=== PATIENT | male | born 1960 | race Caucasian/White ===

== ENCOUNTER 2017-11-17 11:06 | Emergency (ER) | payer OTHER ==
[2017-11-17] MEDS: KETOROLAC 30 MG INJ IV (12:08)
[2017-11-17 12:11] LABS: ADD MAN DIFF? NO
[2017-11-17 12:13] LABS: BASOPHILS % 0.7 % (0.0-2.0); EOSINOPHILS # 0.1 10^3/ul (0.0-0.5); EOSINOPHILS % 3.1 % (0.0-7.0); HEMATOCRIT 41.8 % (42.0-52.0); HEMOGLOBIN 14.5 g/dl (14.0-18.0); LYMPHOCYTES # 1.4 10^3/ul (0.8-2.9); LYMPHOCYTES % 33.5 % (15.0-51.0); MEAN CORPUSCULAR HEMOGLOBIN 32.8 pg (29.0-33.0); MEAN CORPUSCULAR HGB CONC 34.7 g/dl (32.0-37.0); MEAN CORPUSCULAR VOLUME 94.6 fl (82.0-101.0); MEAN PLATELET VOLUME 11.1 fl (7.4-10.4); MONOCYTE # 0.4 10^3/ul (0.3-0.9); MONOCYTES % 9.4 % (0.0-11.0); NEUTROPHIL # 2.3 10^3/ul (1.6-7.5); NEUTROPHILS % 53.1 % (39.0-77.0); PLATELET COUNT 133 10^3/UL (140-415); POSITIVE DIFF @See below; RED BLOOD COUNT 4.42 10^6/ul (4.70-6.10); RED CELL DISTRIBUTION WIDTH 12.7 % (11.5-14.5)
[2017-11-17 12:13] LABS: WHITE BLOOD COUNT 4.2 10^3/ul (4.8-10.8)
[2017-11-17 12:15] LABS: URINE PH (Dip) POC 5.5 (5.0-8.5)
[2017-11-17 12:15] LABS: URINE BLOOD (Dip) POC Trace-lysed (NEGATIVE); URINE GLUCOSE (Dip) POC Negative (NEGATIVE); URINE KETONES (Dip) POC Negative (NEGATIVE); URINE LEUKOCYTE EST (Dip) POC Negative (NEGATIVE); URINE NITRITE (Dip) POC Negative (NEGATIVE); URINE TOTAL PROTEIN POC Negative (NEGATIVE)
[2017-11-17 12:37] LABS: ALANINE AMINOTRANSFERASE 25 IU/L (13-69); ALBUMIN/GLOBULIN RATIO 1.17; ALKALINE PHOSPHATASE 99 IU/L (42-121); ANION GAP 12 (8-16); ASPARTATE AMINO TRANSFERASE 21 IU/L (15-46); BILIRUBIN,INDIRECT 0.5 mg/dl (0-1.1); BILIRUBIN,TOTAL 0.5 mg/dl (0.2-1.3); BLOOD UREA NITROGEN 13 mg/dl (7-20); CALCIUM 9.1 mg/dl (8.4-10.2); CARBON DIOXIDE 26 mmol/L (21-31); CHLORIDE 109 mmol/L (97-110); CREATININE 0.71 mg/dl (0.61-1.24); GLUCOSE 96 mg/dl (70-220); LIPASE 82 U/L (23-300); POTASSIUM 3.8 mmol/L (3.5-5.1); SODIUM 143 mmol/L (135-144); TOTAL PROTEIN 7.4 g/dl (6.1-8.1)
== END 2017-11-17 13:52 | disposition home or self-care (01) ==
LOC: E/R 11:06
DX: K59.00 Constipation, unspecified (principal); D72.819 Decreased white blood cell count, unspecified; D69.6 Thrombocytopenia, unspecified; I10 Essential (primary) hypertension
CPT/HCPCS: 36415; 74176; 80053; 81003; 83690; 85025; 96374; 99285-25

== ENCOUNTER 2018-05-21 07:06 | Day surgery (SDC) | payer OTHER ==
[2018-05-21] MEDS ORDERED: LIDOCAINE 100 MG SYRINGE (08:59)
[2018-05-21] MEDS ORDERED: FENTAnyl 50 MCG/ML VIAL (08:59)
[2018-05-21] MEDS ORDERED: PROPOFOL 60 ML (08:59)
== END 2018-05-21 10:40 | disposition home or self-care (01) ==
LOC: GIL 07:06
DX: Z12.11 Encounter for screening for malignant neoplasm of colon (principal); K64.8 Other hemorrhoids; K29.50 Unspecified chronic gastritis without bleeding; B96.89 Other specified bacterial agents as the cause of diseases classified elsewhere; K21.9 Gastro-esophageal reflux disease without esophagitis; K44.9 Diaphragmatic hernia without obstruction or gangrene; I10 Essential (primary) hypertension; E78.5 Hyperlipidemia, unspecified; Z88.0 Allergy status to penicillin
CPT/HCPCS: 43239; 88305; 88312

== ENCOUNTER 2018-07-17 23:16 | Observation (INO) | payer OTHER ==
[2018-07-18 00:36] LABS: WHITE BLOOD COUNT 5.5 10^3/ul (4.8-10.8)
[2018-07-18 00:36] LABS: ADD MAN DIFF? NO; BASOPHILS % 0.5 % (0.0-2.0); EOSINOPHILS # 0.2 10^3/ul (0.0-0.5); EOSINOPHILS % 3.8 % (0.0-7.0); HEMATOCRIT 44.8 % (42.0-52.0); HEMOGLOBIN 15.5 g/dl (14.0-18.0); LYMPHOCYTES % 37.1 % (15.0-51.0); MEAN CORPUSCULAR HEMOGLOBIN 32.2 pg (29.0-33.0); MEAN CORPUSCULAR HGB CONC 34.6 g/dl (32.0-37.0); MEAN CORPUSCULAR VOLUME 93.1 fl (82.0-101.0); MEAN PLATELET VOLUME 11.1 fl (7.4-10.4); MONOCYTE # 0.6 10^3/ul (0.3-0.9); MONOCYTES % 10.2 % (0.0-11.0); NEUTROPHIL # 2.7 10^3/ul (1.6-7.5); NEUTROPHILS % 48.2 % (39.0-77.0); PLATELET COUNT 147 10^3/UL (140-415); RED BLOOD COUNT 4.81 10^6/ul (4.70-6.10); RED CELL DISTRIBUTION WIDTH 12.3 % (11.5-14.5)
[2018-07-18 01:00] LABS: ANION GAP 13 (5-13); BLOOD UREA NITROGEN 15 mg/dl (7-20); CALCIUM 9.4 mg/dl (8.4-10.2); CARBON DIOXIDE 23 mmol/L (21-31); CHLORIDE 101 mmol/L (97-110); CREATININE 0.65 mg/dl (0.61-1.24); Estimated GFR > 60 mL/min (>60); GLUCOSE 105 mg/dl (70-220); POTASSIUM 4.2 mmol/L (3.5-5.1); SODIUM 137 mmol/L (135-144)
[2018-07-18] MEDS: hydrALAzine 20 MG INJ IV (01:06)
[2018-07-18 01:12] LABS: TROPONIN-I 0.031 ng/ml (0.000-0.120)
[2018-07-18] MEDS ORDERED: ACETAMINOPHEN 325 MG TAB PO ×3 (02:30→09:00)
[2018-07-18] MEDS ORDERED: ONDANSETRON 4 MG INJ IV ×3 (02:30→09:00)
[2018-07-18] MEDS ORDERED: NITROGLYCERIN (SL) 0.4 MG TAB SL ×2 (05:00→09:00)
[2018-07-18] MEDS ORDERED: NACL 0.9% 3 ML SYG IV ×2 (05:00→09:00)
[2018-07-18] MEDS ORDERED: HYDROCODONE/APAP (5/325) TAB PO ×2 (05:00→09:00)
[2018-07-18] MEDS ORDERED: morphine 2 MG INJ IV ×2 (05:00→09:00)
[2018-07-18 06:12] LABS: ADD MAN DIFF? NO
[2018-07-18 06:23] LABS: BASOPHILS % 0.9 % (0.0-2.0); EOSINOPHILS # 0.2 10^3/ul (0.0-0.5); EOSINOPHILS % 4.8 % (0.0-7.0); HEMATOCRIT 44.1 % (42.0-52.0); LYMPHOCYTES # 1.6 10^3/ul (0.8-2.9); LYMPHOCYTES % 36.7 % (15.0-51.0); MEAN CORPUSCULAR HEMOGLOBIN 31.9 pg (29.0-33.0); MEAN CORPUSCULAR VOLUME 93.8 fl (82.0-101.0); MEAN PLATELET VOLUME 11.7 fl (7.4-10.4); MONOCYTE # 0.4 10^3/ul (0.3-0.9); MONOCYTES % 9.6 % (0.0-11.0); NEUTROPHIL # 2.1 10^3/ul (1.6-7.5); NEUTROPHILS % 47.5 % (39.0-77.0); PLATELET COUNT 127 10^3/UL (140-415); POSITIVE DIFF @See below; RED CELL DISTRIBUTION WIDTH 12.2 % (11.5-14.5)
[2018-07-18 06:23] LABS: WHITE BLOOD COUNT 4.4 10^3/ul (4.8-10.8)
[2018-07-18 07:01] LABS: TROPONIN-I < 0.012 ng/ml (0.000-0.120)
[2018-07-18 07:10] LABS: ALANINE AMINOTRANSFERASE 25 IU/L (13-69); ALBUMIN 4.1 g/dl (3.3-4.9); ALBUMIN/GLOBULIN RATIO 1.17; ALKALINE PHOSPHATASE 105 IU/L (42-121); ANION GAP 12 (5-13); ASPARTATE AMINO TRANSFERASE 25 IU/L (15-46); BILIRUBIN,INDIRECT 0.5 mg/dl (0-1.1); BILIRUBIN,TOTAL 0.5 mg/dl (0.2-1.3); BLOOD UREA NITROGEN 13 mg/dl (7-20); CALCIUM 9.3 mg/dl (8.4-10.2); CARBON DIOXIDE 24 mmol/L (21-31); CHLORIDE 102 mmol/L (97-110); CHOL/HDL RATIO 8.3 RATIO; CHOLESTEROL 242 mg/dl (100-200); CREATININE 0.62 mg/dl (0.61-1.24); Estimated GFR > 60 mL/min (>60); GLUCOSE 90 mg/dl (70-220); HDL CHOLESTEROL 29 mg/dl (30-78); MAGNESIUM 1.9 mg/dl (1.7-2.5); POTASSIUM 4.4 mmol/L (3.5-5.1); SODIUM 138 mmol/L (135-144); TOTAL PROTEIN 7.6 g/dl (6.1-8.1)
[2018-07-18] MEDS: HEPARIN 5,000 UNIT/1 ML VIAL SC (07:25)
[2018-07-18] MEDS: SOD CHLORIDE 0.45% 1,000 ML IV (08:52)
[2018-07-18 08:54] LABS: LDL CHOLESTEROL,CALCULATED 50 mg/dl; TRIGLYCERIDES 815 mg/dl (0-149)
[2018-07-18] MEDS ORDERED: DOCUSATE SODIUM 100 MG CAP PO (09:00)
[2018-07-18] MEDS: ASPIRIN (EC) 325 MG TAB PO ×2 (09:00→13:55)
[2018-07-18] MEDS ORDERED: MAGNESIUM HYDROXIDE 30ML CUP PO (09:00)
[2018-07-18] MEDS ORDERED: HEPARIN 5,000 UNIT/1 ML VIAL SC (09:00)
[2018-07-18] MEDS ORDERED: LORAZEPAM 2 MG INJ IV (09:00)
[2018-07-18] MEDS ORDERED: ALBUTEROL/IPRATROPIUM (NEB) 3 ML AMP HHN (09:00)
[2018-07-18] MEDS ORDERED: hydrALAzine 20 MG INJ IV (09:00)
[2018-07-18 13:55] LABS: CREATINE KINASE 89 IU/L (23-200)
[2018-07-18] MEDS: LISINOPRIL 10 MG TAB PO (13:55)
[2018-07-18 14:09] LABS: CK INDEX 1.1; CK-MB 0.96 ng/ml (0.0-2.4); TROPONIN-I < 0.012 ng/ml (0.000-0.120)
[2018-07-18] MEDS ORDERED: ATORVASTATIN 10 MG TAB PO (21:00)
[2018-07-18] MEDS ORDERED: NON-FORMULARY/PATIENT OWN MED (Simvastatin* (Zocor*) 20 MG) PO (21:00)
== END 2018-07-18 22:30 | disposition left against medical advice (07) ==
LOC: TEL 07-18 20:02 → E/R 23:16 → TEL 07-18 02:18
DX: R07.9 Chest pain, unspecified (principal); I10 Essential (primary) hypertension; E78.5 Hyperlipidemia, unspecified; E78.00 Pure hypercholesterolemia, unspecified
CPT/HCPCS: 36415; 71045; 80048; 80053; 80061; 82550; 82553; 83735; 84443; 84484; 85025; 93005; 96374; 99285-25; G0378

== ENCOUNTER 2018-10-27 08:06 | Emergency (ER) | payer OTHER ==
[2018-10-27] MEDS: KETOROLAC 15 MG INJ IM (08:40)
[2018-10-27 09:10] LABS: ADD UMIC YES; UR ASCORBIC ACID NEGATIVE (NEGATIVE); UR BILIRUBIN (Dip) NEGATIVE (NEGATIVE); UR BLOOD (Dip) 1+ mg/dL (NEGATIVE); UR CLARITY CLEAR (CLEAR); UR COLOR STRAW (YELLOW); UR GLUCOSE (Dip) NEGATIVE (NEGATIVE); UR KETONES (Dip) NEGATIVE (NEGATIVE); UR LEUKOCYTE ESTERASE (Dip) NEGATIVE Leu/ul (NEGATIVE); UR NITRITE (Dip) NEGATIVE (NEGATIVE); UR RBC 2 /HPF (0-5); UR TOTAL PROTEIN (Dip) NEGATIVE (NEGATIVE); UR UROBILINOGEN (Dip) NEGATIVE (NEGATIVE); UR WBC 0 /HPF (0-5)
== END 2018-10-27 09:21 | disposition home or self-care (01) ==
LOC: FTE 09:21
DX: M54.5 Low back pain (principal); I10 Essential (primary) hypertension
CPT/HCPCS: 81001; 96372; 99284-25

== ENCOUNTER 2018-12-10 07:34 | Day surgery (SDC) | payer OTHER ==
[2018-12-10] MEDS ORDERED: LIDOCAINE 2% (SDV) 5 ML INJ (10:12)
[2018-12-10] MEDS ORDERED: PROPOFOL 40 ML (10:12)
== END 2018-12-10 13:54 | disposition home or self-care (01) ==
LOC: GIL 07:34
DX: Z12.11 Encounter for screening for malignant neoplasm of colon (principal); K29.50 Unspecified chronic gastritis without bleeding; D12.0 Benign neoplasm of cecum; K64.8 Other hemorrhoids; I10 Essential (primary) hypertension; E78.5 Hyperlipidemia, unspecified
CPT/HCPCS: 43239; 88305; 88312

== ENCOUNTER 2018-12-20 16:58 | Emergency (ER) | payer OTHER ==
[2018-12-20 17:31] LABS: ADD MAN DIFF? NO
[2018-12-20] MEDS: SODIUM CHLORIDE 0.9% 1L BAG IV* (17:32)
[2018-12-20] MEDS: CEFTRIAXONE 1 GM/50 ML (PMX) 50 ML IVPB (17:32)
[2018-12-20 17:37] LABS: WHITE BLOOD COUNT 10.4 10^3/ul (4.8-10.8)
[2018-12-20 17:37] LABS: BASOPHILS % 0.2 % (0.0-2.0); EOSINOPHILS # 0.1 10^3/ul (0.0-0.5); EOSINOPHILS % 0.6 % (0.0-7.0); HEMOGLOBIN 14.7 g/dl (14.0-18.0); LYMPHOCYTES # 0.7 10^3/ul (0.8-2.9); LYMPHOCYTES % 6.4 % (15.0-51.0); MEAN CORPUSCULAR HEMOGLOBIN 31.6 pg (29.0-33.0); MEAN CORPUSCULAR HGB CONC 34.2 g/dl (32.0-37.0); MEAN CORPUSCULAR VOLUME 92.5 fl (82.0-101.0); MONOCYTE # 0.5 10^3/ul (0.3-0.9); MONOCYTES % 4.7 % (0.0-11.0); NEUTROPHIL # 9.1 10^3/ul (1.6-7.5); NEUTROPHILS % 87.9 % (39.0-77.0); PLATELET COUNT 154 10^3/UL (140-415); RED BLOOD COUNT 4.65 10^6/ul (4.70-6.10); RED CELL DISTRIBUTION WIDTH 12.7 % (11.5-14.5)
[2018-12-20 17:45] LABS: ADD UMIC NO; UR ASCORBIC ACID NEGATIVE (NEGATIVE); UR BILIRUBIN (Dip) NEGATIVE (NEGATIVE); UR BLOOD (Dip) NEGATIVE (NEGATIVE); UR CLARITY SLIGHTLY CLOUDY (CLEAR); UR COLOR YELLOW (YELLOW); UR GLUCOSE (Dip) NEGATIVE (NEGATIVE); UR KETONES (Dip) NEGATIVE (NEGATIVE); UR LEUKOCYTE ESTERASE (Dip) NEGATIVE Leu/ul (NEGATIVE); UR MUCUS MODERATE /HPF (NONE SEEN); UR NITRITE (Dip) NEGATIVE (NEGATIVE); UR RBC 10 /HPF (0-5); UR SPECIFIC GRAVITY (Dip) 1.027 (1.003-1.030); UR TOTAL PROTEIN (Dip) NEGATIVE (NEGATIVE); UR UROBILINOGEN (Dip) NEGATIVE (NEGATIVE); UR WBC 2 /HPF (0-5)
[2018-12-20 17:50] LABS: PARTIAL THROMBOPLASTIN TIME 24.8 Sec (23.0-35.0); PROTIME 12.3 Sec (11.9-14.9)
[2018-12-20 17:52] LABS: LACTIC ACID 1.9 mmol/L (0.5-2.0)
[2018-12-20 17:54] LABS: ALANINE AMINOTRANSFERASE 31 IU/L (13-69); ALBUMIN 4.4 g/dl (3.3-4.9); ALBUMIN/GLOBULIN RATIO 1.15; ALKALINE PHOSPHATASE 100 IU/L (42-121); ANION GAP 10 (5-13); ASPARTATE AMINO TRANSFERASE 29 IU/L (15-46); BILIRUBIN,INDIRECT 1.2 mg/dl (0-1.1); BILIRUBIN,TOTAL 1.2 mg/dl (0.2-1.3); BLOOD UREA NITROGEN 17 mg/dl (7-20); CALCIUM 9.1 mg/dl (8.4-10.2); CARBON DIOXIDE 26 mmol/L (21-31); CHLORIDE 102 mmol/L (97-110); CREATININE 0.78 mg/dl (0.61-1.24); Estimated GFR > 60 mL/min (>60); GLUCOSE 128 mg/dl (70-220); POTASSIUM 3.6 mmol/L (3.5-5.1); SODIUM 138 mmol/L (135-144); TOTAL PROTEIN 8.2 g/dl (6.1-8.1)
[2018-12-20 18:05] LABS: TROPONIN-I < 0.012 ng/ml (0.000-0.120)
[2018-12-20] MEDS: metroNIDAZOLE 500 MG/NS (PMX) 100 ML IVPB (18:29)
[2018-12-20] MEDS: ACETAMINOPHEN 500 MG TAB PO (18:37)
== END 2018-12-20 19:41 | disposition home or self-care (01) ==
LOC: E/R 16:58
DX: R10.13 Epigastric pain (principal); I10 Essential (primary) hypertension; Z87.891 Personal history of nicotine dependence
CPT/HCPCS: 36415; 71045; 74176; 80053; 81001; 81003; 83605; 84484; 85025; 85610; 85730; 87040-91; 87086; 93005; 96374; 96375; 99285-25

== ENCOUNTER 2018-12-21 18:36 | Inpatient (IN) | payer OTHER ==
[2018-12-21] MEDS: ONDANSETRON 4 MG INJ IV (20:41)
[2018-12-21] MEDS: SOD CHLORIDE 0.9% 1,000 ML IV (20:42)
[2018-12-21] MEDS: HYDROmorphONE 1 MG/ML SYG IV (20:42)
[2018-12-21 20:49] LABS: HEMATOCRIT 42.9 % (42.0-52.0); HEMOGLOBIN 14.6 g/dl (14.0-18.0); MEAN CORPUSCULAR HEMOGLOBIN 31.7 pg (29.0-33.0); MEAN CORPUSCULAR VOLUME 93.1 fl (82.0-101.0); MEAN PLATELET VOLUME 11.2 fl (7.4-10.4); PLATELET COUNT 128 10^3/UL (140-415); POSITIVE DIFF @See below; RED BLOOD COUNT 4.61 10^6/ul (4.70-6.10); RED CELL DISTRIBUTION WIDTH 12.9 % (11.5-14.5)
[2018-12-21 20:49] LABS: WHITE BLOOD COUNT 6.9 10^3/ul (4.8-10.8)
[2018-12-21 21:04] LABS: ALANINE AMINOTRANSFERASE 25 IU/L (13-69); ALBUMIN 4.3 g/dl (3.3-4.9); ALBUMIN/GLOBULIN RATIO 1.26; ALKALINE PHOSPHATASE 81 IU/L (42-121); ANION GAP 12 (5-13); ASPARTATE AMINO TRANSFERASE 30 IU/L (15-46); BILIRUBIN,INDIRECT 1.3 mg/dl (0-1.1); BILIRUBIN,TOTAL 1.3 mg/dl (0.2-1.3); BLOOD UREA NITROGEN 10 mg/dl (7-20); CALCIUM 8.9 mg/dl (8.4-10.2); CARBON DIOXIDE 24 mmol/L (21-31); CHLORIDE 102 mmol/L (97-110); CREATININE 0.82 mg/dl (0.61-1.24); Estimated GFR > 60 mL/min (>60); GLUCOSE 106 mg/dl (70-220); POTASSIUM 3.4 mmol/L (3.5-5.1); SODIUM 138 mmol/L (135-144); TOTAL PROTEIN 7.7 g/dl (6.1-8.1)
[2018-12-21 21:08] LABS: ADD MAN DIFF? YES
[2018-12-21] MEDS: IOHEXOL 300MG/ML 150 ML BTL (21:32)
[2018-12-21] MEDS: SOD CHLORIDE 0.9% 100 ML (21:32)
[2018-12-21 21:40] LABS: BAND NEUTROPHILS #M 0.9 10^3/ul (0.0-0.6); BAND NEUTROPHILS % (M) 14 % (0-4); GIANT THROMBO% (M) 1 % (0-0); LYMPHOCYTES #M 0.6 10^3/ul (0.8-2.9); LYMPHOCYTES % (M) 10 % (15-51); MONOCYTE #M 0.2 10^3/ul (0.3-0.9); MONOCYTES % (M) 4 % (0-11); PLATELET ESTIMATE NORMAL; SEGMENTED NEUTROPHILS (M) % 72 % (39-77); SMUDGE%M 91 % (0-0)
[2018-12-21] MEDS: ACETAMINOPHEN 500 MG TAB PO (23:17)
[2018-12-21] MEDS ORDERED: ONDANSETRON 4 MG INJ IV (23:30)
[2018-12-21] MEDS: metroNIDAZOLE 500 MG/NS (PMX) 100 ML IVPB (23:30)
[2018-12-21] MEDS ORDERED: ACETAMINOPHEN 325 MG TAB PO (23:30)
[2018-12-22] MEDS ORDERED: ACETAMINOPHEN 325 MG TAB PO
[2018-12-22] MEDS ORDERED: NACL 0.9% 3 ML SYG IV
[2018-12-22] MEDS ORDERED: ONDANSETRON 4 MG INJ IV
[2018-12-22 00:34] LABS: ADD MAN DIFF? NO
[2018-12-22 00:37] LABS: BASOPHILS % 0.3 % (0.0-2.0); HEMATOCRIT 39.8 % (42.0-52.0); HEMOGLOBIN 13.5 g/dl (14.0-18.0); LYMPHOCYTES # 0.7 10^3/ul (0.8-2.9); LYMPHOCYTES % 11.8 % (15.0-51.0); MEAN CORPUSCULAR HEMOGLOBIN 31.5 pg (29.0-33.0); MEAN CORPUSCULAR HGB CONC 33.9 g/dl (32.0-37.0); MEAN PLATELET VOLUME 10.6 fl (7.4-10.4); MONOCYTE # 0.4 10^3/ul (0.3-0.9); MONOCYTES % 6.2 % (0.0-11.0); NEUTROPHIL # 4.7 10^3/ul (1.6-7.5); NEUTROPHILS % 81.4 % (39.0-77.0); PLATELET COUNT 125 10^3/UL (140-415); POSITIVE DIFF @See below; RED BLOOD COUNT 4.28 10^6/ul (4.70-6.10); RED CELL DISTRIBUTION WIDTH 12.9 % (11.5-14.5)
[2018-12-22 00:37] LABS: WHITE BLOOD COUNT 5.8 10^3/ul (4.8-10.8)
[2018-12-22 00:53] LABS: LACTIC ACID 0.7 mmol/L (0.5-2.0)
[2018-12-22 00:55] LABS: ALANINE AMINOTRANSFERASE 24 IU/L (13-69); ALBUMIN 3.9 g/dl (3.3-4.9); ALBUMIN/GLOBULIN RATIO 1.11; ALKALINE PHOSPHATASE 73 IU/L (42-121); ANION GAP 11 (5-13); ASPARTATE AMINO TRANSFERASE 26 IU/L (15-46); BILIRUBIN,INDIRECT 1.2 mg/dl (0-1.1); BILIRUBIN,TOTAL 1.2 mg/dl (0.2-1.3); BLOOD UREA NITROGEN 9 mg/dl (7-20); CALCIUM 8.4 mg/dl (8.4-10.2); CARBON DIOXIDE 23 mmol/L (21-31); CHLORIDE 105 mmol/L (97-110); CHOL/HDL RATIO 3.3 RATIO; CHOLESTEROL 142 mg/dl (100-200); CREATININE 0.71 mg/dl (0.61-1.24); Estimated GFR > 60 mL/min (>60); GLUCOSE 108 mg/dl (70-220); HDL CHOLESTEROL 42 mg/dl (30-78); LDL CHOLESTEROL,CALCULATED 87 mg/dl; MAGNESIUM 1.9 mg/dl (1.7-2.5); SODIUM 139 mmol/L (135-144); TOTAL PROTEIN 7.4 g/dl (6.1-8.1); TRIGLYCERIDES 65 mg/dl (0-149)
[2018-12-22] MEDS: CIPROFLOXACIN 400MG/D5W 200 ML IVPB (01:03)
[2018-12-22 01:24] LABS: THYROID STIMULATING HORMONE 0.759 MIU/L (0.465-4.680)
[2018-12-22 01:28] LABS: C-REACTIVE PROTEIN 14.1 mg/dl (0.0-0.9)
[2018-12-22 01:33] LABS: BAND NEUTROPHILS #M 0.3 10^3/ul (0.0-0.6); BAND NEUTROPHILS % (M) 6 % (0-4); LYMPHOCYTES #M 0.8 10^3/ul (0.8-2.9); LYMPHOCYTES % (M) 15 % (15-51); MONOCYTE #M 0.4 10^3/ul (0.3-0.9); MONOCYTES % (M) 7 % (0-11); PLATELET ESTIMATE DECREASED; PROMYELOCYTES % (M) 1 % (0-0); SEG NEUT #M 4.1 10^3/ul (1.6-7.5); SEGMENTED NEUTROPHILS (M) % 71 % (39-77); SMUDGE%M 3 % (0-0)
[2018-12-22 02:05] LABS: ERYTHROCYTE SEDIMENTATION RATE 28 mm/Hr (0-20)
[2018-12-22] MEDS: SOD CHLORIDE 0.9% 1,000 ML IV (02:35)
[2018-12-22 02:46] LABS: HEMOGLOBIN A1C 5.5 % (0-5.9)
[2018-12-22] MEDS: morphine 2 MG INJ IV (02:49)
[2018-12-22] MEDS: PIPER-TAZO 3.375 GM IV (PMX) 100 ML IVPB (04:06)
[2018-12-22] MEDS: MAGNESIUM SULFATE 1 GM/D5W 100 ML IVPB (05:36)
[2018-12-22] MEDS: PANTOPRAZOLE (EC) 40 MG TAB PO (05:36)
[2018-12-22] MEDS: POTASSIUM CHLORIDE (SR) 20 MEQ TAB PO ×3 (06:47→21:04)
[2018-12-22] MEDS: LISINOPRIL 10 MG TAB PO (08:57)
[2018-12-22] MEDS: MEROPENEM 1 GM/50ML(PMX) 50 ML IVPB ×3 (08:57→22:41)
[2018-12-22] MEDS: 1/2 NS + KCL 20 MEQ 1,000 ML IV (12:18)
[2018-12-22 12:43] LABS: OCCULT BLOOD STOOL POSITIVE (NEGATIVE)
[2018-12-22] MEDS: ATORVASTATIN 20 MG TAB PO (21:04)
[2018-12-23] MEDS: 1/2 NS + KCL 20 MEQ 1,000 ML IV ×3 (01:45→18:09)
[2018-12-23] MEDS: MEROPENEM 1 GM/50ML(PMX) 50 ML IVPB (06:11)
[2018-12-23] MEDS: PANTOPRAZOLE (EC) 40 MG TAB PO (06:11)
[2018-12-23 06:20] LABS: ADD MAN DIFF? NO
[2018-12-23 06:22] LABS: BASOPHILS % 0.6 % (0.0-2.0); EOSINOPHILS # 0.1 10^3/ul (0.0-0.5); EOSINOPHILS % 1.2 % (0.0-7.0); HEMATOCRIT 40.3 % (42.0-52.0); HEMOGLOBIN 13.9 g/dl (14.0-18.0); LYMPHOCYTES # 1.1 10^3/ul (0.8-2.9); LYMPHOCYTES % 21.2 % (15.0-51.0); MEAN CORPUSCULAR HEMOGLOBIN 31.7 pg (29.0-33.0); MEAN CORPUSCULAR HGB CONC 34.5 g/dl (32.0-37.0); MEAN CORPUSCULAR VOLUME 91.8 fl (82.0-101.0); MEAN PLATELET VOLUME 10.4 fl (7.4-10.4); MONOCYTE # 0.7 10^3/ul (0.3-0.9); MONOCYTES % 13.1 % (0.0-11.0); NEUTROPHIL # 3.2 10^3/ul (1.6-7.5); NEUTROPHILS % 63.7 % (39.0-77.0); PLATELET COUNT 126 10^3/UL (140-415); POSITIVE DIFF @See below; RED BLOOD COUNT 4.39 10^6/ul (4.70-6.10); RED CELL DISTRIBUTION WIDTH 12.8 % (11.5-14.5)
[2018-12-23 06:59] LABS: ANION GAP 9 (5-13); BLOOD UREA NITROGEN 8 mg/dl (7-20); CALCIUM 8.9 mg/dl (8.4-10.2); CARBON DIOXIDE 24 mmol/L (21-31); CHLORIDE 106 mmol/L (97-110); CREATININE 0.74 mg/dl (0.61-1.24); Estimated GFR > 60 mL/min (>60); GLUCOSE 100 mg/dl (70-220); POTASSIUM 3.8 mmol/L (3.5-5.1); SODIUM 139 mmol/L (135-144)
[2018-12-23] MEDS: LISINOPRIL 10 MG TAB PO (08:08)
[2018-12-23] MEDS: LEVOFLOXACIN 500MG/D5W (PMX) 100 ML IVPB (14:17)
[2018-12-23] MEDS: DICYCLOMINE 10 MG CAP PO (14:44)
[2018-12-23] MEDS: ATORVASTATIN 20 MG TAB PO (20:09)
[2018-12-24] MEDS: PANTOPRAZOLE (EC) 40 MG TAB PO (05:22)
[2018-12-24 07:24] LABS: ADD MAN DIFF? NO
[2018-12-24 07:28] LABS: ANCA SCREEN NEGATIVE (NEGATIVE)
[2018-12-24 07:35] LABS: WHITE BLOOD COUNT 5.1 10^3/ul (4.8-10.8)
[2018-12-24 07:35] LABS: BASOPHILS % 0.6 % (0.0-2.0); EOSINOPHILS # 0.1 10^3/ul (0.0-0.5); EOSINOPHILS % 1.8 % (0.0-7.0); HEMATOCRIT 41.3 % (42.0-52.0); HEMOGLOBIN 14.1 g/dl (14.0-18.0); LYMPHOCYTES # 1.2 10^3/ul (0.8-2.9); LYMPHOCYTES % 24.1 % (15.0-51.0); MEAN CORPUSCULAR HEMOGLOBIN 31.5 pg (29.0-33.0); MEAN CORPUSCULAR HGB CONC 34.1 g/dl (32.0-37.0); MEAN CORPUSCULAR VOLUME 92.4 fl (82.0-101.0); MEAN PLATELET VOLUME 10.9 fl (7.4-10.4); MONOCYTE # 0.5 10^3/ul (0.3-0.9); MONOCYTES % 10.6 % (0.0-11.0); NEUTROPHIL # 3.2 10^3/ul (1.6-7.5); NEUTROPHILS % 62.5 % (39.0-77.0); PLATELET COUNT 141 10^3/UL (140-415); RED BLOOD COUNT 4.47 10^6/ul (4.70-6.10); RED CELL DISTRIBUTION WIDTH 12.7 % (11.5-14.5)
[2018-12-24 07:53] LABS: ANION GAP 11 (5-13); BLOOD UREA NITROGEN 11 mg/dl (7-20); CALCIUM 9.1 mg/dl (8.4-10.2); CARBON DIOXIDE 22 mmol/L (21-31); CHLORIDE 107 mmol/L (97-110); CREATININE 0.65 mg/dl (0.61-1.24); Estimated GFR > 60 mL/min (>60); GLUCOSE 98 mg/dl (70-220); POTASSIUM 4.1 mmol/L (3.5-5.1); SODIUM 140 mmol/L (135-144)
[2018-12-24] MEDS: LISINOPRIL 10 MG TAB PO (08:31)
[2018-12-24] MEDS: morphine 2 MG INJ IV (08:32)
[2018-12-24] MEDS: LEVOFLOXACIN 500MG/D5W (PMX) 100 ML IVPB (13:02)
[2018-12-24] MEDS: 1/2 NS + KCL 20 MEQ 1,000 ML IV (14:38)
[2018-12-24] MEDS ORDERED: CIPROFLOXACIN 500 MG TAB (15:47)
[2018-12-24] MEDS: metroNIDAZOLE 500 MG TAB PO (15:50)
[2018-12-24] MEDS: CIPROFLOXACIN 500 MG TAB PO (16:32)
[2018-12-25] MEDS ORDERED: LEVOFLOXACIN 500 MG TAB PO (06:00)
[2018-12-25 11:46] LABS: MYELOPEROXIDASE ANTIBODY <1.0 AI; PROTEINASE-3 ANTIBODY <1.0 AI
== END 2018-12-24 16:34 | disposition home or self-care (01) | DRG 392 ==
LOC: PP2 23:24 → E/R 18:36
DX: A09 Infectious gastroenteritis and colitis, unspecified (principal); E87.6 Hypokalemia; D69.6 Thrombocytopenia, unspecified; I10 Essential (primary) hypertension; E78.5 Hyperlipidemia, unspecified
CPT/HCPCS: 36415; 74177; 80048; 80053; 80061; 82270; 83036; 83605; 83735; 84443; 85025; 85651; 86021; 86140; 86674; 87040-91; 87045; 87075; 87177; 87205; 96374; 96375; 99285-25